=== PATIENT | male | born 1945 | race Caucasian/White ===

== ENCOUNTER 2018-12-23 07:23 | Day surgery (SDC) | payer MEDICARE ==
[~2018-12-23] VITALS: Ht 182.9 cm; Wt 116.3 kg
[~2018-12-23 07:23] MED LIST: ATOR1TAB19 PO; BENA40TA7 PO; FLOM0.4C39 PO; IBUP80TA PO; LIDOCAINE 1% MDV 20ML VIAL SQ PRN; LORA2TAB9 PO; NORV5TAB PO; OMEP40CA2 PO; SYNT137T7 PO; TRAM50TA2 PO; WARF-23 PO
[2018-12-23] MEDS ORDERED: LR 1,000 ML IV ONE (08:15)
[2018-12-23 08:21] LABS: INR 1.14; PROTHROMBIN TIME 14.3 SECONDS (11.8-14.0)
[2018-12-23 08:22] LABS: PARTIAL THROMBOPLASTIN TIME 30.6 SECONDS (25.0-38.4)
[2018-12-23] MEDS ORDERED: dexameTHASONE 4 MG/ML 1ML VIAL (J1100) As Ordered ONE (08:33)
[2018-12-23] MEDS ORDERED: ROCURONIUM BROMIDE 50 MG/5 ML VIAL As Ordered ONE (08:33)
[2018-12-23] MEDS ORDERED: LIDOCAINE 2% INJ 100 MG/5 ML SDV (FOR ANES.) As Ordered ONE (08:33)
[2018-12-23] MEDS ORDERED: ONDANSETRON 4MG/2ML VIAL (J2405) As Ordered ONE (08:33)
[2018-12-23] MEDS ORDERED: PROPOFOL 200 MG/20 ML VIAL As Ordered ONE (08:33)
[2018-12-23] MEDS ORDERED: KETOROLAC 60 MG/2 ML VIAL (J1885) As Ordered ONE (08:33)
[2018-12-23] MEDS ORDERED: fentaNYL 250 MCG/5 ML INJECTION (J3010) As Ordered ONE (08:34)
[2018-12-23] MEDS ORDERED: MIDAZOLAM INJ 2 MG/2 ML VIAL (J2250) As Ordered ONE (08:34)
[2018-12-23] MEDS ORDERED: LIDOCAINE 1% SDV INJ 30 ML VIAL As Ordered ONE (09:38)
[2018-12-23] MEDS ORDERED: BUPIVACAINE HCL 0.25% 30 ML VIAL As Ordered ONE (09:39)
[2018-12-23] MEDS ORDERED: ePHEDrine SULFATE 25 MG/5 ML(5MG/ML) SYRINGE As Ordered ONE (11:07)
[2018-12-23] MEDS ORDERED: KETAMINE HCL 200 MG/20 ML VIAL As Ordered ONE (11:21)
[2018-12-23] MEDS ORDERED: oxyCODONE 5MG TAB PO PRN (12:30)
[2018-12-23] MEDS ORDERED: LR 1,000 ML IV SCH (12:30)
[2018-12-23] MEDS ORDERED: fentaNYL 100 MCG/2 ML INJECTION (J3010) IV PRN (12:30)
[2018-12-23] MEDS ORDERED: ONDANSETRON 4MG/2ML VIAL (J2405) IV PRN ×2 (12:30)
[2018-12-23] MEDS ORDERED: NORCO, ANEXSIA 5/325MG TABLET (HYDROcodone/ACETAMINOPHEN) PO PRN ×2 (12:30)
[2018-12-23 15:26] VITALS: BP 160/89
[2018-12-23] MEDS ORDERED: KETOROLAC 30 MG/ML VIAL (J1885) IV PRN (18:00)
== END 2018-12-23 15:50 | disposition home or self-care (01) ==
LOC: M SDC 07:23
PROVIDERS: ATTEND Surgery
DX: K40.91 Unilateral inguinal hernia, without obstruction or gangrene, recurrent (principal); I10 Essential (primary) hypertension; F41.9 Anxiety disorder, unspecified; E07.9 Disorder of thyroid, unspecified; I51.9 Heart disease, unspecified; Z87.891 Personal history of nicotine dependence; Z79.01 Long term (current) use of anticoagulants
CPT/HCPCS: 36415; 49650; 85610; 85730; 88304; C1781; J0690; J1100; J1885; J2250; J2405; J3010

== ENCOUNTER 2020-01-04 12:40 | Day surgery (SDC) | payer MEDICARE ==
[~2020-01-04 12:40] MED LIST changes: +BENA40TA5 PO; -BENA40TA7 PO; -LIDOCAINE 1% MDV 20ML VIAL SQ PRN; +LORA2TAB14 PO; -LORA2TAB9 PO; -OMEP40CA2 PO; +OMEP40CA97 PO
[2020-01-04] MEDS ORDERED: LIDOCAINE 2% 100MG/5ML SDV (FOR ANES.) ONE (13:46)
[2020-01-04] MEDS ORDERED: propofoL 200 MG/20 ML VIAL ONE ×2 (13:46)
--- NOTE | 2020-01-27 11:35 | ROOR ---
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 Procedure: Pre-Anesthesia Assessment: - Prior to the procedure, a History and Physical was performed, and patient medications and allergies were reviewed. The patient is competent. The risks and benefits of the procedure and the sedation options and risks were discussed with the patient. All questions were answered and informed consent was obtained. Patient identification and proposed procedure were verified by the physician, the nurse and the anesthesiologist in the procedure room. Mental Status Examination: alert and oriented. Airway Examination: normal oropharyngeal airway and neck mobility. Respiratory Examination: clear to auscultation. CV Examination: normal. Prophylactic Antibiotics: The patient does not require prophylactic antibiotics. Prior Anticoagulants: The patient has taken no previous anticoagulant or antiplatelet agents. ASA Grade Assessment: III - A patient with severe systemic disease. After reviewing the risks and benefits, the patient was deemed in satisfactory condition to undergo the procedure. The anesthesia plan was to use deep sedation / analgesia. Immediately prior to administration of medications, the patient was re-assessed for adequacy to receive sedatives. The heart rate, respiratory rate, oxygen saturations, blood pressure, adequacy of pulmonary ventilation, and response to care were monitored throughout the procedure. The physical status of the patient was re-assessed after the procedure. The Colonoscope was introduced through the anus and advanced to the terminal ileum, with identification of the appendiceal orifice and IC valve. The colonoscopy was performed without difficulty. The patient tolerated the procedure well. The quality of the bowel preparation was good. The terminal ileum, ileocecal valve, appendiceal orifice, and rectum were photographed. Scope insertion time was 3 minutes. Scope withdrawal time was 9 minutes. The total duration of the procedure was 15 minutes. Findings: The perianal and digital rectal examinations were normal. The terminal ileum appeared normal. Six sessile polyps were found in the sigmoid colon, descending colon, transverse colon and ileocecal valve. The polyps were 4 to 8 mm in size. These polyps were removed with a cold snare. Resection and retrieval were complete. Verification of patient identification for the specimen was done by the physician and nurse using the patient's name, date and medical record number. Estimated blood loss was minimal. For hemostasis, one hemostatic clip was successfully placed. There was no bleeding at the end of the procedure. Multiple small and large-mouthed diverticula were found from sigmoid to descending colon. There was no evidence of diverticular bleeding. Non-bleeding external and internal hemorrhoids were found during retroflexion. The hemorrhoids were medium-sized. Impression: - The examined portion of the ileum was normal. - Six 4 to 8 mm polyps in the sigmoid colon, in the descending colon, in the transverse colon and at the ileocecal valve, removed with a cold snare. Resected and retrieved. Clip was placed. - Moderate diverticulosis from sigmoid to descending colon. There was no evidence of diverticular bleeding. - Non-bleeding external and internal hemorrhoids. Recommendation: - Patient has a contact number available for emergencies. The signs and symptoms of potential delayed complications were discussed with the patient. Return to normal activities tomorrow. Written discharge instructions were provided to the patient. - High fiber diet. - Resume Coumadin (warfarin) at prior dose today. Refer to primary physician for further adjustment of therapy. - Continue present medications. - Use fiber, for example Citrucel, Fibercon, Konsyl or Metamucil. - Await pathology results. - Telephone GI clinic for pathology results in 2 weeks. - Repeat colonoscopy in 3 - 5 years for surveillance based on pathology results. - Return to primary care physician. Robert Hi MD 01/04/2020 2:24:06 PM Number of Addenda: 0 Note Initiated On: 01/04/2020 9:47 AM Estimated Blood Loss: Estimated blood loss was minimal.
== END 2020-01-04 14:47 | disposition home or self-care (01) ==
LOC: M SDC 12:40
PROVIDERS: ATTEND Internal Medicine Gastroenterology
DX: K64.8 Other hemorrhoids (principal); K63.5 Polyp of colon; K57.30 Diverticulosis of large intestine without perforation or abscess without bleeding; R19.5 Other fecal abnormalities; K21.9 Gastro-esophageal reflux disease without esophagitis; I48.91 Unspecified atrial fibrillation; Z79.01 Long term (current) use of anticoagulants; Z79.891 Long term (current) use of opiate analgesic; Z79.899 Other long term (current) drug therapy; Z88.8 Allergy status to other drugs, medicaments and biological substances

== ENCOUNTER 2020-12-07 07:49 | Inpatient (IN) | payer MEDICARE ==
[~2020-12-07] VITALS: Ht 182.9 cm; Wt 125.3 kg
[~2020-12-07 07:49] MED LIST changes: +OMEP40CA4 PO; -OMEP40CA97 PO
[2020-12-07] MEDS ORDERED: HYDR12.55 PO (08:02)
[2020-12-07] MEDS ORDERED: ACET500P3 PO (08:02)
--- NOTE | 2020-12-07 08:29 | REP ---
INDICATION: CHEST PAIN. COMPARISON: None. TECHNIQUE: Single portable AP view of the chest was performed. FINDINGS: There is mild cardiomegaly. There are mild bibasilar interstitial opacities representing mild interstitial infiltrates or fibrotic change. No consolidative infiltrate is seen. The mediastinal silhouette is unremarkable. The visualized osseous structures are unremarkable. IMPRESSION: Mild cardiomegaly. Mild bibasilar interstitial infiltrate or fibrosis. <Electronically signed by Jose Armando Muñiz > 12/07/20 [id number]
[2020-12-07 08:37] LABS: BASO % 0.5 % (0.0-1.0); EOS # 0.1 10^3/uL (0.0-0.5); EOS % 0.8 % (0.0-3.0); HEMATOCRIT 39.7 % (42.0-52.0); HEMOGLOBIN 13.7 g/dl (13.5-17.5); LYMPH % 16.1 % (24.0-44.0); MEAN CORPUSCULAR HEMOGLOBIN 34.4 pg (27.0-33.0); MEAN CORPUSCULAR HGB CONC 34.5 g/dl (32.0-36.5); MEAN CORPUSCULAR VOLUME 99.7 fl (80.0-96.0); MONO # 0.7 10^3/uL (0.0-0.8); MONO % 10.8 % (2.0-8.0); NEUTROPHILS # 4.6 10^3/uL (1.5-8.5); NEUTROPHILS % 71.3 % (36.0-66.0); PLATELET COUNT, AUTOMATED 154 10^3/uL (150-450); RED BLOOD COUNT 3.98 10^6/uL (4.30-6.10); WHITE BLOOD COUNT 6.4 10^3/uL (4.0-10.0)
[2020-12-07] MEDS ORDERED: ASPIRIN 81 MG CHEW TABLET PO ONE (08:55)
[2020-12-07] MEDS ORDERED: NITROGLYCERIN 0.4 MG SUBL TABLET SL PRN (08:55)
[2020-12-07 09:08] LABS: ALT/SGPT 37 U/L (12-78); BILIRUBIN,DIRECT 0.3 MG/DL (0.0-0.2); BLOOD UREA NITROGEN 12 MG/DL (7-18); CALCIUM LEVEL 8.8 MG/DL (8.8-10.2); CARBON DIOXIDE LEVEL 24 MEQ/L (21-32); CHLORIDE LEVEL 109 MEQ/L (98-107); CK-MB VALUE MASS 3.9 NG/ML (<3.6); CPK CREATINE PHOSPHOKINASE 157 U/L (39-308); CREATININE FOR GFR 0.87 MG/DL (0.70-1.30); GLOMERULAR FILTRATION RATE > 60.0 (>42); GLUCOSE, FASTING 101 MG/DL (70-100); LIPASE 86 U/L (73-393); MB/CK RELATIVE INDEX 2.48 (< OR =4); POTASSIUM SERUM 3.8 MEQ/L (3.5-5.1); SODIUM LEVEL 141 MEQ/L (136-145); THYROID STIMULATING HORMONE 0.728 uIU/ML (0.358-3.740); TOTAL PROTEIN 7.3 GM/DL (6.4-8.2); TROPONIN I 0.04 NG/ML (< 0.10)
[2020-12-07] MEDS ORDERED: ISOVUE-370 76% 100ML VIAL As Ordered ONE (09:17)
[2020-12-07 10:03] LABS: INR 3.2; PROTHROMBIN TIME 33.5 SECONDS (12.5-14.3)
[2020-12-07 10:04] LABS: PARTIAL THROMBOPLASTIN TIME 44.5 SECONDS (24.2-38.5)
--- NOTE | 2020-12-07 10:19 | REP ---
INDICATION: SOB, chest pain. COMPARISON: AP upright 12/07/2020 TECHNIQUE: CT angiogram chest performed following the intravenous administration of 75 cc of Isovue 370. Sagittal and coronal reconstruction images are performed. FINDINGS: Lungs: There is a small right and trace left pleural effusion. Some mild diffuse interstitial changes are noted that may reflect some interstitial edema or atelectatic change. I do not see dense consolidation with air bronchograms, parenchymal mass pulmonary nodule. Mediastinum: A couple of 10 mm nodes in the pre-vascular space, 9 mm nodes in the AP window space laterally and medially. A 14 mm node in the right paratracheal region. 1 cm node subcarinal region. Pulmonary arteries: The main, right and left pulmonary arteries in the mediastinum are without filling defect or vessel cut off. Prominence of the pulmonary arteries at the beryl consistent with COPD and pulmonary artery hypertension. The lobar, segmental and visible subsegmental arteries are without filling defect or vessel cut off. Beryl: Few small nodes are present and a 9 mm node node on the right with a 10 mm node at the left hilum. Axilla: No adenopathy. Pleura: No pleural based mass or pleural calcification. Small right and trace left effusion. Heart: Moderately severe cardiomegaly with left atrial and ventricular enlargement and right heart enlargement. . Thoracic aorta: Dilatation of the ascending aorta up to 5.1 cm just above the aortic root and 4.4 cm in the proximal aortic arch. The distal arch is 3.6 cm. The descending aorta tapers a 3.3 cm. No gross evidence for dissection. Upper abdominal structures: There is no hiatal hernia. Liver, spleen, gallbladder, adrenal glands, pancreas are grossly intact. There is a 4.4 cm cyst anteriorly off the interpolar region right kidney with the remainder of the upper poles of the kidneys unremarkable. No abdominal aortic aneurysm. Visualized osseous structures: Lumbar spondylosis and fusion at the L1-2 level spondylosis with diffuse disc space narrowing throughout the lower thoracic spine and marginal osteophytes no compression deformity or destructive lesion. Sternum and manubrium are unremarkable. Visualized ribs, medial clavicles, portions of scapulae and humeral heads included were unremarkable. IMPRESSION: No CT evidence of pulmonary embolism. No infiltrate seen. Cardiomegaly with left atrial and ventricular enlargement, small right and trace left effusion and interstitial changes suggesting edema or patchy atelectasis. Aneurysmal dilatation ascending aorta up to 5.1 cm above the aortic root tapering to 4.4 cm at the proximal arch, 3.6 cm in the distal arch and 3.3 cm in the descending aorta. The mediastinal and hilar nodes as described. <Electronically signed by Dionte Cedeño > 12/07/20 101
[2020-12-07] MEDS ORDERED: FUROSEMIDE 40MG/4ML VIAL (J1940) IV ONE (10:35)
[2020-12-07] MEDS ORDERED: AMLO1TAB25 PO (10:54)
[2020-12-07] MEDS ORDERED: ACET500T15 PO (10:55)
[2020-12-07] MEDS ORDERED: ACETAMINOPHEN TAB 650MG DOSE (2X325MG) PO PRN (11:35)
[2020-12-07] MEDS ORDERED: traMADol 50 MG TAB PO PRN (11:35)
--- NOTE | 2020-12-07 12:29 | HPEPDOC ---
[facility] Medical History & Physical Date of Admission Dec 07, 2020 Date of Service: Dec 07, 2020 Attending Physician: ZARA GARCIA DO History and Physical CHIEF COMPLAINT: Shortness of breath HISTORY OF PRESENT ILLNESS: Patient is a 75-year-old male presents to the hospital with a history of increasing shortness of breath. Patient states he has been having difficulty breathing for the past few months but has gotten acutely worse over the past few days. Patient states that whenever he exerts himself he has difficulty breathing. Patient states last night he went to bring his dog outside and became very short of breath the point where he actually wet himself. Patient states that he has been having difficulty laying flat and have wakes up about once a week having acute shortness of breath for the past few months. Patient follows with the cardiology office with Dr. Nevarez and Dr. Thomas. Patient states he has been doing good losing weight prior to the COVID-19 pandemic. Patient states he is otherwise feeling well at this time. Patient denies any leg swelling. PAST MEDICAL HISTORY: 1. Hypertension. 2. Hypothyroidism. 3. Arthritis. 4. Atrial fibrillation on Coumadin 5. Hyperlipidemia 6. Anxiety PAST SURGICAL HISTORY: 1. Hernia repair. 2. Detached retina repair. 3. Colonoscopy. SOCIAL HISTORY: Patient currently lives with his . He is at home in [facility] as well as in [place]. 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 FAMILY HISTORY: Patient says his mother had a stent placed ALLERGIES: Please see below. REVIEW OF SYSTEMS: General: Patient denies fevers HEENT: Patient denies headaches Cardiovascular: Patient reports a tightness in his chest secondary to her shortness of breath Respiratory: Patient reports shortness of breath as above GI: Patient denies abdominal pain, nausea, vomiting, diarrhea : Patient denies increased frequency or pain with urination Extremities: Patient denies swelling or pain in extremities Neurological: Patient denies numbness or tingling in legs Skin: Patient denies any new rashes or lesions. Hematologic: Patient denies any easy bruising. Lymphatic: Patient denies any lumps lumps or bumps in neck, axilla, or groin HOME MEDICATIONS: Please see below. PHYSICAL EXAMINATION: VITAL SIGNS: Temperature 97.8, pulse 73, respiratory rate 18, blood pressure 128/76, pulse oximetry 97% on room air. General: Alert and oriented male patient who is laying in the bed when I walked in the room. Patient did not appear to be in any acute distress. HEENT: Normocephalic, atraumatic, moist mucous membranes. Neck: No lymphadenopathy or thyromegaly Cardiac: Irregularly irregular rhythm with a nontachycardic rate, no murmurs, normal S1, normal S2 Pulm: Crackles in the bilateral bases. Clear to auscultation in the upper lung escamilla, tympanic to percussion in all lung escamilla Abd: Nondistended, nontender to palpation, normal bowel sounds Ext: Trace pitting edema on the ankles bilaterally, dorsalis pedis and posterior tibial pulses 2/4 bilaterally Neuro: Patient was able to move all 4 extremities on command. Patient reported equal sensation to light touch in his upper and lower extremities. Skin: Skin of the head, neck, abdomen, lower extremities, and upper extremities was examined did not show any evidence of rash or other lesions. LABORATORY DATA: See below. IMAGING: Chest x-ray performed on 12/07/2020 is reported to show mild cardiomegaly. Mild bibasilar interstitial infiltrate or fibrosis. CT angiogram of the chest performed on 12/07/2020 reported to show no CT evidence of pulmonary embolism. No infiltrates seen. Cardiomegaly with left atrial and ventricular enlargement, small right and trace left effusion and interstitial changes suggesting edema or patchy atelectasis. Aneurysmal dilatation ascending aorta up to 5.1 cm above the aortic root tapering to 4.4 cm at the proximal arch, 3.6 cm in the distal arch and 3.3 cm the descending aorta. Mediastinal and hilar nodes with a 9 mm node on the right and 10 mm node on the left MICROBIOLOGY: Please see below. ASSESSMENT: Patient is a 75-year-old male who presents to the hospital with increasing shortness of breath he was found to have pulmonary edema suggesting congestive heart failure. . PLAN: 1. Shortness of breath. This is most likely secondary to congestive heart failure although the patient is not aware of this diagnosis he has taken Lasix in the past. We will continue with IV Lasix, strict intake and output, fluid restriction, and daily weights. We will continue to monitor the patient. Echocardiogram has been ordered. We have requested his outpatient records. 2. Congestive heart failure, unknown ejection fraction. Echocardiogram has been ordered. I have requested records from the patient's outpatient cardiology office in order to see if we can determine whether or not the patient has had an echocardiogram in the past and what his ejection fraction is. We will continue IV diuresis as above. 3. Hypertension. Will continue the patient's home medication with hold parameters 4. Atrial fibrillation. Patient is currently on Coumadin. Patient's INR is supratherapeutic at this time so we will hold Coumadin today and recheck tomorrow. 5. Hyperlipidemia. Continue patient's home medications. 6. DVT prophylaxis. Patient is fully anticoagulated with Coumadin. 7. CODE STATUS: Full code Disposition: Patient will be admitted to the medical surgical floor with telemetry and will be diuresed. Patient is expected to stay 2 midnights. Vital Signs Vital Signs Date Time Temp Pulse Resp B/P (MAP) Pulse Ox O2 Delivery O2 Flow Rate FiO2 12/07/20 09:40 73 18 128/76 (93) 97 Room Air 12/07/20 07:50 97.8 Laboratory Data Labs 24H Laboratory Tests 2 12/07/20 08:16: Immature Granulocyte % (Auto) 0.5, Neutrophils (%) (Auto) 71.3H, Lymphocytes (%) (Auto) 16.1L, Monocytes (%) (Auto) 10.8H, Eosinophils (%) (Auto) 0.8, Basophils (%) (Auto) 0.5, Neutrophils # (Auto) 4.6, Lymphocytes # (Auto) 1.0L, Monocytes # (Auto) 0.7, Eosinophils # (Auto) 0.1, Basophils # (Auto) 0.0, Nucleated Red Blo od Cells % (auto) 0.0, Anion Gap 8, Glomerular Filtration Rate > 60.0, Calcium Level 8.8, Total Bilirubin 1.0, Direct Bilirubin 0.3H, Aspartate Amino Transf (AST/SGOT) 21, Alanine Aminotransferase (ALT/SGPT) 37, Alkaline Phosphatase 53, Total Creatine Kinase 157, Creatine Kinase MB 3.9H, Creatine Kinase MB Relative Index 2.48, Troponin I 0.04, Total Protein 7.3, Albumin 4.0, Albumin/Globulin Ratio 1.2, Lipase 86, Thyroid Stimulating Hormone (TSH) 0.728 12/07/20 09:41: Prothrombin Time 33.5H, Prothromb Time International Ratio 3.20, Activated Partial Thromboplast Time 44.5H CBC/BMP Laboratory Tests 12/07/20 08:16 Home Medications Scheduled Amlodipine Besylate (Amlodipine Besylate) 10 Mg Tablet, 10 MG PO DAILY Atorvastatin Calcium (Atorvastatin Calcium) 10 Mg Tablet, 10 MG PO QHS Benazepril HCl (Benazepril HCl) 40 Mg Tablet, 40 MG PO DAILY Hydrochlorothiazide (Hydrochlorothiazide) 12.5 Mg Tablet, 12.5 MG PO DAILY Levothyroxine Sodium (Synthroid) 137 Mcg Tablet, 137 MCG PO QAM Lorazepam (Lorazepam) 2 Mg Tablet, 2 MG PO QHS Omeprazole (Omeprazole) 40 Mg Capsule.dr, 40 MG PO QHS Tamsulosin HCl (Flomax) 0.4 Mg Capsule, 0.4 MG PO BID Warfarin Sodium (Warfarin Sodium) 5 Mg Tablet, 5 MG PO QPM Scheduled PRN Acetaminophen (Acetaminophen) 500 Mg Tablet, 1,000 MG PO for PAIN LEVEL 1-6 Tramadol HCl (Tramadol HCl) 50 Mg Tablet, 50 MG PO Q6HP PRN for PAIN LEVEL 4-7 Allergies Coded Allergies: No Known Allergies (Unverified , 12/23/18) A-FIB/CHADSVASC A-FIB History Current/History of A-Fib/PAF?: Yes Current PO Anticoag Therapy: Yes Treatment Treatment ordered: Warfarin ZARA GARCIA DO Dec 07, 2020 12:29
[2020-12-07 14:55] VITALS: BP 147/94
--- NOTE | 2020-12-07 17:21 | ECGEPIP ---
[facility] - ED Test Date: 2020-12-07 Pat Name: DONAL PERALTA Department: Room: - Gender: Male [employer]: : 1945 Requested By: BRIAN Padron Order Number: [id number] Reading MD: Jaleel Hanks Measurements Intervals [place] Rate: 91 P: NM: QRS: -53 QRSD: 150 T: 115 QT: 398 QTc: 489 Interpretive Statements Atrial fibrallation LEFT AXIS DEVIATION Right bundle branch block Left anterior fascicular block Bifascicular block Left ventricular hypertrophy with repolarization abnormality ( R in aVL ) NO PRIORS FOR COMPARISON Electronically Signed on 12-07-2020 17:20:46 EDT by Jaleel Hanks
[2020-12-07] MEDS: FUROSEMIDE 40MG/4ML VIAL (J1940) IV SCH (19:06)
[2020-12-07 21:00] VITALS: BP 135/89
[2020-12-07] MEDS ORDERED: ATORVASTATIN 10 MG TAB PO SCH (21:00)
[2020-12-07] MEDS ORDERED: LORazepam 2 MG TAB PO SCH (21:00)
[2020-12-07] MEDS ORDERED: OMEPRAZOLE 20 MG CAP PO SCH (21:00)
[2020-12-07] MEDS: TAMSULOSIN 0.4 MG CAP PO SCH (21:13)
[2020-12-08] MEDS: FUROSEMIDE 40MG/4ML VIAL (J1940) IV SCH ×2 (02:49→09:23)
[2020-12-08 02:58] VITALS: BP 133/88
[2020-12-08] MEDS ORDERED: LEVOTHYROXINE 137MCG TABLET (0.137MG) PO SCH (06:00)
[2020-12-08 07:07] LABS: HEMATOCRIT 40.3 % (42.0-52.0); HEMOGLOBIN 14.1 g/dl (13.5-17.5); MEAN CORPUSCULAR HEMOGLOBIN 34.2 pg (27.0-33.0); MEAN CORPUSCULAR VOLUME 97.8 fl (80.0-96.0); PLATELET COUNT, AUTOMATED 158 10^3/uL (150-450); RED BLOOD COUNT 4.12 10^6/uL (4.30-6.10); WHITE BLOOD COUNT 5.2 10^3/uL (4.0-10.0)
[2020-12-08 07:15] LABS: INR 2.35; PROTHROMBIN TIME 26.3 SECONDS (12.5-14.3)
[2020-12-08 07:34] LABS: BLOOD UREA NITROGEN 12 MG/DL (7-18); CALCIUM LEVEL 8.5 MG/DL (8.8-10.2); CARBON DIOXIDE LEVEL 31 MEQ/L (21-32); CHLORIDE LEVEL 103 MEQ/L (98-107); CREATININE FOR GFR 0.97 MG/DL (0.70-1.30); GLOMERULAR FILTRATION RATE > 60.0 (>42); GLUCOSE, FASTING 100 MG/DL (70-100); POTASSIUM SERUM 3.2 MEQ/L (3.5-5.1); SODIUM LEVEL 138 MEQ/L (136-145)
[2020-12-08] MEDS ORDERED: BENAZEPRIL 20 MG TAB PO SCH (09:00)
[2020-12-08] MEDS ORDERED: ENOXAPARIN 40MG/0.4ML SYRINGE (J1650 PER 10MG) SC SCH (09:00)
[2020-12-08] MEDS ORDERED: hydroCHLOROthiazide 12.5 MG CAPSULE PO SCH (09:00)
[2020-12-08 09:24] VITALS: BP 133/88
[2020-12-08] MEDS: TAMSULOSIN 0.4 MG CAP PO SCH (09:24)
[2020-12-08] MEDS: POTASSIUM CHLORIDE 10 MEQ SR TABLET PO SCH ×2 (10:08→13:18)
[2020-12-08] MEDS ORDERED: FURO40TA2 PO (12:59)
[2020-12-08] MEDS ORDERED: WARFARIN SOD 5MG TAB PO SCH (17:00)
--- NOTE | 2020-12-08 17:08 | DS.PDOC ---
Discharge Summary General Date of Admission Dec 07, 2020 at 11:32 Date of Discharge 12/08/2020 Primary Care Physician: JEWEL HSU MD Attending Physician: ZARA GARCIA DO Discharge Summary PROCEDURES PERFORMED DURING STAY: None. ADMITTING DIAGNOSES: 1. Shortness of breath. 2. Acute exacerbation of congestive heart failure with unknown ejection fraction 3. Hypertension 4. Atrial fibrillation 5. Hyperlipidemia DISCHARGE DIAGNOSES: 1. Shortness of breath, improved. 2. Acute exacerbation of congestive heart failure with unknown ejection fraction, improved 3. Hypertension 4. Chronic atrial fibrillation 5. Hyperlipidemia COMPLICATIONS/CHIEF COMPLAINT: Chest Pain, Pulmonary Edema. HISTORY OF PRESENT ILLNESS: Patient is a 75-year-old male presents to the hospital with a history of increasing shortness of breath. Patient states he has been having difficulty breathing for the past 2 months and has gotten acutely worse over the past few days. Patient states whenever he exerts himself he has difficulty breathing. Patient states he went last night to bring his dog outside and became very short of breath the point where he wet himself. Patient states that he had been having difficulty laying flat for the past few months and will wake up but once a week short of breath. Patient follows with [facility]. Patient denies any leg swelling. HOSPITAL COURSE: Patient received IV Lasix and diuresed well. Patient was feeling much better this morning and stated that he was able to walk to and from the bathroom without any difficulty. Patient diuresed a total of a net negative balance of 4560 cc. Patient was feeling much better on the morning of 12/08/2020. Patient has received another dose of IV Lasix and did well throughout the morning. I came back to see the patient after lunch and stated he was feeling back to his baseline and the patient was deemed ready for discharge on 12/08/2020. Patient had echocardiogram that was performed but we are pending the read. Patient was discharged in the hospital on 12/08/2020 DISCHARGE MEDICATIONS: Please see below. ALLERGIES: Please see below. PHYSICAL EXAMINATION ON DISCHARGE: VITAL SIGNS: Please see below. General: Alert and oriented male patient who was sitting up in bed when I walked in the room. Patient did not appear to be in any acute distress. HEENT: Normocephalic, atraumatic, moist mucous membranes. Neck: No lymphadenopathy or thyromegaly Cardiac: Regular rate and rhythm, no murmurs, normal S1, normal S2 Pulm: Clear to auscultation bilaterally. No wheezes, rhonchi, rales Abd: Nondistended, nontender to palpation, normal bowel sounds Ext: No edema bilateral lower extremities LABORATORY DATA: Please see below. IMAGING: Chest x-ray performed on 12/07/2020 is reported to show mild cardiomegaly. Mild bibasilar interstitial infiltrate or fibrosis. CT angiogram of the chest performed on 12/07/2020 reported to show no CT evidence of pulmonary embolism. No infiltrates seen. Cardiomegaly with left atrial and ventricular enlargement, small right and trace left effusion and interstitial changes suggesting edema or patchy atelectasis. Aneurysmal dilatation ascending aorta up to 5.1 cm above the aortic root tapering to 4.4 cm at the proximal arch, 3.6 cm in the distal arch and 3.3 cm the descending aorta. Mediastinal and hilar nodes with a 9 mm node on the right and 10 mm node on the left PROGNOSIS: Good ACTIVITY: As tolerated. DIET: 2 g sodium with 2000 cc fluid restriction DISCHARGE PLAN: Discharge home DISPOSITION: 01 Home, Self-Care. DISCHARGE INSTRUCTIONS: 1. Follow-up with your primary care provider within 3 to 5 days of discharge. 2. Start furosemide 40 mg every day 3. Follow-up with your cardiology office within 1 to 2 weeks of discharge 4. Return to the emergency department if symptoms worsen ITEMS TO FOLLOWUP ON ON OUTPATIENT: 1. Monitoring fluid status and electrolytes. 2. Follow-up echocardiogram results DISCHARGE CONDITION: Stable. TIME SPENT ON DISCHARGE: 35 minutes. Vital Signs/I&Os Vital Signs Date Time Temp Pulse Resp B/P (MAP) Pulse Ox O2 Delivery O2 Flow Rate FiO2 12/08/20 09:24 80 133/88 12/08/20 02:58 97.1 18 95 Room Air I&O- Last 24 Hours up to 6 AM 12/08/20 06:00 Intake Total 390 ml Output Total 3900 ml Balance -3510 ml Laboratory Data Labs 24H Laboratory Tests 2 12/08/20 06:40: Nucleated Red Blood Cells % (auto) 0.0, Prothrombin Time 26.3H, Prothromb Time International Ratio 2.35, Anion Gap 4L, Glomerular Filtration Rate > 60.0, Calcium Level 8.5L, Magnesium Level 2.0 CBC/BMP Laboratory Tests 12/08/20 06:40 Microbiology Microbiology 12/07/20 Respiratory Virus Panel (PCR) ([facility]) - Final, Complete Discharge Medications Scheduled Amlodipine Besylate (Amlodipine Besylate) 10 Mg Tablet, 10 MG PO DAILY, (Reported) Atorvastatin Calcium (Atorvastatin Calcium) 10 Mg Tablet, 10 MG PO QHS, (Reported) Benazepril HCl (Benazepril HCl) 40 Mg Tablet, 40 MG PO DAILY, (Reported) Furosemide (Furosemide) 40 Mg Tablet, 1 TAB PO DAILY Levothyroxine Sodium (Synthroid) 137 Mcg Tablet, 137 MCG PO QAM, (Reported) Lorazepam (Lorazepam) 2 Mg Tablet, 2 MG PO QHS, (Reported) Omeprazole (Omeprazole) 40 Mg Capsule.dr, 40 MG PO QHS, (Reported) Tamsulosin HCl (Flomax) 0.4 Mg Capsule, 0.4 MG PO BID, (Reported) Warfarin Sodium (Warfarin Sodium) 5 Mg Tablet, 5 MG PO QPM, (Reported) Scheduled PRN Acetaminophen (Acetaminophen) 500 Mg Tablet, 1,000 MG PO for PAIN LEVEL 1-6, (Reported) Tramadol HCl (Tramadol HCl) 50 Mg Tablet, 50 MG PO Q6HP PRN for PAIN LEVEL 4-7, (Reported) Allergies Coded Allergies: No Known Allergies (Unverified , 12/23/18) ZARA GARCIA DO Dec 08, 2020 17:08
--- NOTE | 2020-12-09 12:35 | ECHO ---
ECHOCARDIOGRAM DATE OF PROCEDURE: 12/07/2020 Age: 75 Gender: Male Height: 183 cm Weight: 130 kg REFERRING PHYSICIAN: Sky Shelley M.D. INDICATION: Heart failure, unspecified. MEASUREMENTS: 2D Measurements: Aortic annulus 2.4 cm Intraventricular septum 1.09 cm Posterior wall 1.05 cm Left ventricle diastole 6.9 cm Left ventricle systole 5.6 cm Aortic root at sinuses of Valsalva 5.0 cm Proximal ascending aorta 5.2 cm Left atrium 4.3 cm Left atrial volume index 55 Doppler Measurements: Moderate aortic regurgitation No aortic stenosis LVOT velocity 73.1 cm/sec LVOT VTI 13.3 cm Aortic regurgitation pressure half time 718 msec Moderate mitral regurgitation No mitral stenosis Severe tricuspid regurgitation Estimated right ventricle systolic pressure 48 mmHg Estimated right atrial pressure of 15 mmHg No pulmonic regurgitation. MITRAL ANNULAR TISSUE DOPPLER: Not acquired. DESCRIPTION: Rhythm appeared to be atrial fibrillation with controlled ventricular response. This was a moderately technically difficult echocardiogram. This was a 2D, M-mode, color flow Doppler and pulsed wave Doppler examination. CONCLUSIONS: 1. Moderately dilated left ventricle at both end-diastole and systole. Severe global left ventricular (LV) hypokinesis. Severe reduction of LV systolic function. Left ventricular ejection fraction (LVEF) 25% by visual assessment. 2. Moderate aortic valve sclerosis of A3-cuspid aortic valve. Moderate aortic regurgitation. No aortic stenosis. 3. Moderate mitral annular calcification. Moderate mitral regurgitation. No mitral stenosis. 4. Severe left atrial dilatation by left atrial volume index. 5. Moderate dilatation of the aortic root at the level of the sinuses of Valsalva (5.0 cm) and proximal ascending aorta (5.2 cm). 6. Suggestive of moderate elevation of estimated right ventricle systolic pressure (48 mmHg). Visual appearance of normal right ventricle size and systolic function. Structurally normal appearing tricuspid leaflets. Severe tricuspid regurgitation. 7. No pericardial effusion. 8. Moderately technically difficult echocardiogram.
== END 2020-12-08 13:30 | disposition home or self-care (01) | DRG 292 ==
LOC: M ED 07:49 → M ED INP 11:32 → ENRESERV 13:55 → M MSPAV 15:03
PROVIDERS: ADMIT Family Medicine; ATTEND Family Medicine
DX: I11.0 Hypertensive heart disease with heart failure (principal); I48.20 Chronic atrial fibrillation, unspecified; I50.9 Heart failure, unspecified; E03.9 Hypothyroidism, unspecified; M19.90 Unspecified osteoarthritis, unspecified site; E78.5 Hyperlipidemia, unspecified; F41.9 Anxiety disorder, unspecified; Z79.899 Other long term (current) drug therapy; Z79.01 Long term (current) use of anticoagulants

== ENCOUNTER → 2021-01-02 | Outpatient (CLI) | payer MEDICARE ==
[~2021-01-02] MED LIST changes: +ACET500P3 PO; +ACET500T15 PO; +AMLO1TAB25 PO; +FURO40TA2 PO; +HYDR12.55 PO
== END ==
LOC: M SLEEP HO 11:37
PROVIDERS: ATTEND Internal Medicine Cardiovascular Disease
DX: R06.83 Snoring (principal)

== ENCOUNTER → 2021-01-03 | Outpatient (CLI) | payer MEDICARE ==
[2021-01-03 12:14] LABS: BILIRUBIN,TOTAL 1.1 MG/DL (0.2-1.0); BLOOD UREA NITROGEN 18 MG/DL (7-18); CALCIUM LEVEL 8.7 MG/DL (8.8-10.2); CARBON DIOXIDE LEVEL 27 MEQ/L (21-32); CHLORIDE LEVEL 102 MEQ/L (98-107); CREATININE FOR GFR 1.11 MG/DL (0.70-1.30); GLOMERULAR FILTRATION RATE > 60.0 (>42); GLUCOSE, FASTING 96 MG/DL (70-100); NT-PRO BNP 570 PG/ML (<450); POTASSIUM SERUM 4.3 MEQ/L (3.5-5.1); SODIUM LEVEL 134 MEQ/L (136-145)
--- NOTE | 2021-01-03 15:54 | SLEEPHOME ---
DATE: 01/03/2021 ORDERED BY: Dr. Thomas Diagnostic home sleep testing was performed due to concern for the obstructive sleep apnea syndrome in this patient with a history of snoring. For testing, [employer] T3 respiratory monitoring system was used. Continuous record was made of pulse, oxygen saturation, air flow, chest and abdominal strain, and body position. There was 7 hours and 26 minutes of data reviewed, and during this interval 331 respiratory were identified of 10 seconds in duration or greater for a respiratory event index of 44.5. The events were mixed with frequent central apneas. Baseline pulse rate was 72 beats per minute. Pulse rate ranged 37-102. Baseline saturation 93%. Saturations fell to 78%. Testing was performed in both the supine and nonsupine positions. IMPRESSION: Abnormal home sleep testing with repetitive respiratory events and oxygen desaturations to 78% with a respiratory event index of 44.5 is consistent with the obstructive sleep apnea syndrome. RECOMMENDATION: The patient should be strongly encouraged to undergo formal sleep evaluation. Given the frequency of central events identified during the study, patient may have complex disease and require pressure titration with a bilevel device.
== END ==
LOC: M LAB 10:49
PROVIDERS: ATTEND Internal Medicine Cardiovascular Disease
DX: I50.42 Chronic combined systolic (congestive) and diastolic (congestive) heart failure (principal)